=== PATIENT | male | born 1940 | race Caucasian/White ===

== ENCOUNTER → 2018-05-28 | Outpatient (CLI) | payer MEDICARE ==
--- NOTE | 2018-05-28 09:15 | Diagnostic Imaging Report ---
INDICATION: Left knee pain. FINDINGS: AP, oblique and lateral views of the left knee reveal mild narrowing involving primarily the medial compartment of the knee joint. There is a small ossific fragment adjacent to the medial tibial spine which appears to be located posteriorly. This may represent loose body. There is no significant chondrocalcinosis or juxta-articular erosion. There is no evidence of an acute fracture. 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 There may be small amount of knee joint fluid, however, no fracture or malalignment is detected. Dictated by: Dictated on workstation # [id number]
== END ==
LOC: RAD FS 08:59
PROVIDERS: ATTEND Family Medicine
DX: M10.062 Idiopathic gout, left knee (principal)
CPT/HCPCS: 73562